=== PATIENT | male | born 1965 | race Caucasian/White ===

== ENCOUNTER 2024-08-20 06:30 | Day surgery (SDC) | payer OTHER, SELFPAY ==
[2024-08-20 08:20] LABS: Glucose - Point of Care 172 mg/dl (70-99)
== END 2024-08-20 09:25 | disposition home or self-care (01) ==
LOC: GI 06:30
PROVIDERS: ATTENDING PHYSICIAN Internal Medicine Gastroenterology
DX: Z12.11 Encounter for screening for malignant neoplasm of colon (principal); K64.8 Other hemorrhoids; K57.30 Diverticulosis of large intestine without perforation or abscess without bleeding; K63.5 Polyp of colon; D17.5 Benign lipomatous neoplasm of intra-abdominal organs; Z86.0100 Personal history of colon polyps, unspecified
CPT/HCPCS: 45380; 88305; 82962

== ENCOUNTER → 2025-06-17 07:18 | Outpatient (REF) | payer OTHER, SELFPAY | LOC: RAD 07:18 | PROVIDERS: ATTENDING PHYSICIAN Nurse Practitioner; FAMILY PHYSICIAN Internal Medicine | DX: M54.9 Dorsalgia, unspecified (principal) | CPT/HCPCS: 76700 ==